=== PATIENT | female | born 1965 | race Caucasian/White ===

== ENCOUNTER 2017-10-13 09:45 | Day surgery (SDC) | payer OTHER, SELFPAY ==
[2017-10-13] VITALS (7 sets, daily range): BP systolic 124–170; BP diastolic 73–94; PULSE 91–108; RESP 12–17; TEMP 36.3–36.7; O2SAT 93–98; BMI 22.2
[2017-10-13] MEDS: LACTATED RINGERS 1,000 ML 42 ML IV (14:38)
--- NOTE | 2017-10-13 15:03 | PM.PREOP ---
Pre-operative Note Interval Note Pre-op Check: Yes History & Physical exam performed today by Physician Changes: No
--- NOTE | 2017-10-13 15:03 | PM.HP.1 ---
History of Present Illness Date Patient Seen: 10/13/17 Time Patient Seen: 15:04 Chief complaint: [id number] Narrative: 51-year-old female with a left distal radius fracture from 10/07/2017. She was stepping backwards and tripped in a hole and fell with her left arm outstretched and broke the left wrist. She is right-hand dominant. She did not hit her head or lose consciousness. She is not having pain anywhere else. She was seen in emergency room and splinted. Patient History Surgical History Status post hysterectomy (03/13/17) Family & Social History Family History: Reviewed 10/13/17 by Dejon Pérez MD Social History: household members spouse Meds Allergies Allergy/AdvReac Type Severity Reaction Status Date / Time codeine [CODEINE] Allergy Severe VOMITING Verified 10/13/17 14:07 shellfish derived Allergy Mild TONGUE/LIP Verified 10/13/17 14:07 [SHELLFISH DERIVED] TINGLING Review of Systems Constitutional Constitutional: Reports system reviewed and no additional complaints, except as documented Cardiovascular Cardiovascular: Reports chest pain Respiratory Respiratory: Reports cough Exam Vital Signs (past 8 hours): - 10/13/17 13:59 Temperature 98.0 F Pulse Rate 103 H Respiratory Rate 12 Blood Pressure 168/90 H Pulse Oximetry 98 Oxygen Delivery Method Room Air Const Orientation: alert and oriented x3 Resp Auscultation: clear to auscultation bilaterally Cardio Rate: regular rate Rhythm: regular rhythm Extrem Other: Left wrist-intact integument. Intact sensation throughout all fingers. Can easily wiggle fingers but uncomfortable. Good capillary refill in the fingers. Objective Imaging Wrist x-ray: My impression: Comminuted intra-articular distal radius fracture of the left wrist. Intact ulnar styloid Assessment & Plan (1) Distal radius fracture: Problem details: She will be admitted as an outpatient for ORIF of the left distal radius fracture. Risks and benefits of surgery discussed including but not limited to medical risks with heart attack, stroke, , infection, bleeding, scarring, nonunion, malunion, stiffness, laxity, loss of strength, need for further surgery. All questions were answered and we will proceed with surgery today. Current visit: Yes Status: Acute
[2017-10-13] MEDS: MIDAZOLAM 2 MG/2 ML VIAL IV (15:05)
[2017-10-13] MEDS: fentaNYL 100 MCG/2 ML INJ 50 MCG IV (15:05)
--- NOTE | 2017-10-13 15:06 | P.HP_ITS ---
History of Present Illness Date Patient Seen: 10/13/17 Time Patient Seen: 15:04 Chief complaint: [id number] Narrative: 51-year-old female with a left distal radius fracture from 2017. She was stepping backwards and tripped in a hole and fell with her left arm outstretched and broke the left wrist. She is right-hand dominant. She did not hit her head or lose consciousness. She is not having pain anywhere else. She was seen in emergency room and splinted. Patient History Surgical History Status post hysterectomy (03/13/17) Family & Social History Family History: Reviewed 10/13/17 by Dejon Pérez MD Social History: household members spouse Meds Allergies Allergy/AdvReac Type Severity Reaction Status Date / Time codeine [CODEINE] Allergy Severe VOMITING Verified 10/13/17 14:07 shellfish derived Allergy Mild TONGUE/LIP Verified 10/13/17 14:07 [SHELLFISH DERIVED] TINGLING Review of Systems Constitutional Constitutional: Reports system reviewed and no additional complaints, except as documented Cardiovascular Cardiovascular: Reports chest pain Respiratory Respiratory: Reports cough Exam Vital Signs (past 8 hours): - 10/13/17 13:59 Temperature 98.0 F Pulse Rate 103 H Respiratory Rate 12 Blood Pressure 168/90 H Pulse Oximetry 98 Oxygen Delivery Method Room Air Const Orientation: alert and oriented x3 Resp Auscultation: clear to auscultation bilaterally Cardio Rate: regular rate Rhythm: regular rhythm Extrem Other: Left wrist-intact integument. Intact sensation throughout all fingers. Can easily wiggle fingers but uncomfortable. Good capillary refill in the fingers. Objective Imaging Wrist x-ray: My impression: Comminuted intra-articular distal radius fracture of the left wrist. Intact ulnar styloid Assessment & Plan (1) Distal radius fracture: Problem details: She will be admitted as an outpatient for ORIF of the left distal radius fracture. Risks and benefits of surgery discussed including but not limited to medical risks with heart attack, stroke, , infection, bleeding, scarring, nonunion, malunion, stiffness, laxity, loss of strength, need for further surgery. All questions were answered and we will proceed with surgery today. Current visit: Yes Status: Acute
--- NOTE | 2017-10-13 15:09 | PM.OP.1 ---
Operative Date/Time/Diagnoses Date of procedure: 10/13/17 Time of procedure: 16:19 Pre-op diagnosis: Intra-articular distal left radius fracture, 3 part Post-op diagnosis: same Procedure & Clinicians Procedure: ORIF of left distal radius fracture, intra-articular 3 part Same procedure as scheduled: Yes Indications: 51-year-old female with a displaced intra-articular distal radius fracture. It was felt she would benefit from operative reduction and stabilization. Risks and benefits of surgery were discussed and appropriate consents were obtained. Surgeon: Dejon Pérez Click Yes if Unassisted: Yes Anesthesia Type: General and Peripheral nerve block Operative Notes Findings: None Closure Type: primary Specimen(s): none sent Implants & Drains: [employer] volar plate Estimated Blood Loss (mL): 5 Tourniquet time (min): 28 Procedure in detail: The patient was brought to the operating room and intubated on the table. Time-out was performed. Attention was turned towards the well-marked left wrist. Preoperative antibiotics were given. The arm was prepped and draped in the standard sterile fashion. An Esmarch was used to exsanguinate the limb and the tourniquet was inflated. A 8 cm incision was made along the FCR course curving radially distally across the wrist crease. We sharply dissected through the FCR tendon sheath and retracted the tendon and then came down to the quadratus. This was elevated off the distal radius. The fracture was exposed. We then reduced the fractures and confirmed under x-ray. We then took a [employer] volar plate. It was placed against the bone and x-ray was taken to confirm positioning. One screw was placed through the shaft in the variable hole. This was checked under x-ray and tightened down. We then placed distal row pegs and proximal row screws in the distal fragment. We started along the ulnar column and then finished out in the styloid. We then went back and placed the final shaft screws. The wrist was stressed and shucked under xray to make sure it was stable. Final x-rays were taken. The wound was irrigated. The superficial skin were closed. The patient was placed in a well-padded volar splint. They are extubated and brought to recovery with no complications. Complications: none Condition: stable Disposition: PACU Plan for aftercare: Outpatient. Begin hand therapy after follow-up visit.
--- NOTE | 2017-10-13 15:22 | SUR.OPER ---
Supine on padded OR bed, head on pillow,RIGHT arm secured on padded arm boards at <90 degrees abduction, legs uncrossed, safety belt at thigh, tape over blanket over lower legs.Left arm to hand table.
[2017-10-13] MEDS: CEFAZOLIN 2 GM/100 ML FROZ.PIGGY IV (15:26)
[2017-10-13] MEDS: BUPIVACAINE 0.5% W/ EPI (PF) VIAL 30 ML INJ (15:36)
--- NOTE | 2017-10-13 16:08 | DI.RAD.S_ITS ---
PROCEDURE: XR WRIST LT 2V INDICATIONS: LEFT WRIST REPAIR AFTER FRACTURE TECHNIQUE: 2 views of the wrist were acquired. COMPARISON: [facility] Outside Film, CR, XR WRIST 3+ VIEWS LEFT, 10/07/2017, 21:53. [facility] Outside Film, CR, XR FOREARM LEFT, 10/07/2017, 21:53. FINDINGS: Bones: C-arm images demonstrate near-anatomic alignment status post ORIF of distal radial metaphyseal intra-articular fracture. Stabilization plates and screws present in expected position. Scaphoid view: Not requested. Soft tissues: No suspicious soft tissue calcifications. IMPRESSION: Near-anatomic alignment status post ORIF of distal radial fracture. Dictated by: Amari Griffith [facility] Interpreted: Feliciano Spring MD on 10/13/2017 at 16:14 Approved by: Feliciano Spring M.D. on 10/16/2017 at 9:54
== END 2017-10-13 17:03 | disposition home or self-care (01) ==
PROVIDERS: PCP Family Medicine; Visit Provider Orthopaedic Surgery
PROC: (CPT 25609; principal; 2017-10-13 12:45)
DX: S52.572A Other intraarticular fracture of lower end of left radius, initial encounter for closed fracture (principal); W01.0XXA Fall on same level from slipping, tripping and stumbling without subsequent striking against object, initial encounter; G89.18 Other acute postprocedural pain
CPT/HCPCS: 25609; 64415; 64450; 73100; 76000; J0690; J1100; J2250; J2405; J2704; J3010